=== PATIENT | female | born 1975 | race Caucasian/White ===

== ENCOUNTER 2019-11-06 09:31 | Day surgery (SDC) | payer MEDICAID ==
[~2019-11-06] VITALS: Ht 147.3 cm; Wt 45.5 kg
[2019-11-06 09:41] VITALS: BP 97/58
[2019-11-06] MEDS ORDERED: fentaNYL/PF 50MCG/1 ML 2ML syringe ONE (10:04)
[2019-11-06] MEDS ORDERED: LIDOcaine Viscous 15ml cup ONE (10:04)
[2019-11-06] MEDS ORDERED: MIDAZolam 5mg/5ml vial ONE (10:04)
[2019-11-06] MEDS ORDERED: OMEP-50 PO (11:11)
[2019-11-06 11:47] VITALS: BP 101/69
[2019-11-06 11:57] VITALS: BP 95/61
[2019-11-06 12:07] VITALS: BP 102/63
[2019-11-06 12:17] VITALS: BP 101/53
[2019-11-06 12:27] VITALS: BP 104/63
== END 2019-11-06 12:45 | disposition home or self-care (01) ==
LOC: GI LAB 09:31
PROVIDERS: ATTEND Internal Medicine Gastroenterology
DX: R11.0 Nausea (principal); K31.7 Polyp of stomach and duodenum; K29.50 Unspecified chronic gastritis without bleeding
CPT/HCPCS: 43239; 43251; 99152; C1773; J2250; J3010; J7040; A4620